=== PATIENT | male | born 1940 | race Hispanic/Latino ===

== ENCOUNTER 2019-03-09 07:17 | Observation (INO) | payer MEDICARE ==
[2019-01-17 12:35] LABS: BASOPHILS % 0.2 % (0.0-1.0); EOSINOPHILS # (AUTO) 0.1 (0.0-0.4); EOSINOPHILS % 1.9 % (0.0-6.0); HEMATOCRIT 41.2 % (34.2-44.1); HEMOGLOBIN 14.2 g/dL (12.0-16.0); LYMPHOCYTES # (AUTO) 1.3 (1.0-3.2); LYMPHOCYTES % 23.7 % (18.0-39.1); MEAN CORPUSCULAR HEMOGLOBIN 32.3 pg (28-32); MEAN CORPUSCULAR HGB CONC 34.5 g/dL (31-35); MEAN CORPUSCULAR VOLUME 93.6 fL (81-99); MONOCYTES # (AUTO) 0.8 (0.2-0.8); MONOCYTES % 14.1 % (4.4-11.3); NEUTROPHILS # (AUTO) 3.2 (2.1-6.9); NEUTROPHILS % 59.7 % (38.7-80.0); PLATELET COUNT 169 x10e3/uL (140-360); RED CELL DISTRIBUTION WIDTH 12.7 % (11.7-14.4)
[2019-01-17 13:09] LABS: ANION GAP 9.9 mmol/L (8-16); BLOOD UREA NITROGEN 20 mg/dL (7-26); BUN/CREATININE RATIO 25 (6-25); CALCIUM 9.4 mg/dL (8.4-10.2); CARBON DIOXIDE 26 mmol/L (22-29); CHLORIDE 106 mmol/L (98-107); CREATININE, SERUM 0.81 mg/dL (0.72-1.25); EST GLOMERULAR FILTRATION RATE > 60 ML/MIN (60-); GLUCOSE 174 mg/dL (74-118); POTASSIUM 3.9 mmol/L (3.5-5.1); SODIUM 138 mmol/L (136-145)
--- NOTE | 2019-01-17 13:21 | Diagnostic Imaging Report ---
EXAMINATION: PA and lateral views of the chest. COMPARISON: None CLINICAL HISTORY: Preoperative study for orthopedic procedure DISCUSSION: Lines/tubes: None. Lungs: The lungs are well inflated and clear. There is no evidence of pneumonia or pulmonary edema. Pleura: There is no pleural effusion or pneumothorax. Heart and mediastinum: The cardiomediastinal silhouette is normal. Coronary artery stents. Bones and soft tissues: No acute bony abnormalities. Degenerative changes in the thoracic spine IMPRESSION: No acute cardiopulmonary abnormalities. Signed by: Dr. Trenton Ricks M.D. on 01/17/2019 1:18 PM
[~2019-03-09] VITALS: Ht 170.2 cm; Wt 63.0 kg
[~2019-03-09 07:17] MED LIST: ASPIR 8181 MG PO; ATORVASTATIN CA20 MG PO; METFORMIN HCL500 MG PO; VASOTEC10 MG PO
--- OUTSIDE RECORDS SUMMARY | 2019-03-09 07:30 | XMS REPORT ---
Author Author [facility] [place] Address Unknown Phone Unavailable Care Team Providers Care Leasing Agent Name Role Phone JUAN VALENZUELA Unavailable Unavailable Problems This patient has no known problems. Allergies, Adverse Reactions, Alerts This patient has no known allergies or adverse reactions. Medications This patient has no known medications. Results Test Description Test Time Test Comments Text Results Atomic Results Result Comments CHEST 2 VIEWS 2019-01-17 13:16:00 [place] [id number] Patient Name: JC SCHULZ MR #: [id number] : 1940 Age/Sex: 78/M Req #: [id number] Adm Physician: Ordered by: JUAN VALENZUELA MD Report #: [id number] Location: OR Room/Bed: Procedure: [id number] DX/CHEST 2 VIEWS Exam Date: Exam Time: REPORT STATUS: Signed EXAMINATION: PA and lateral views of the chest. COMPARISON: None CLINICAL HISTORY: Preoperative study for orthopedic procedure DISCUSSION: Lines/tubes: None. Lungs: The lungs are well inflated and clear. There is no evidence of pneumonia or pulmonary edema. Pleura: There is no pleural effusion or pneumothorax. Heart and mediastinum: The cardiomediastinal silhouette is normal. Coronary artery stents. Bones and soft tissues: No acute bony abnormalities. Degenerative changes in the thoracic spine IMPRESSION: No acute cardiopulmonary abnormalities. Signed by: Dr. Stephanie Gilbert M.D. on 01/17/2019 1:18 PM Dictated By: STEPHANIE GILBERT MD [id number] Transcribed By: PRESTON on 01/17/19 1318 COPY TO: JUAN VALENZUELA MD
[2019-03-09] MEDS ORDERED: CEFAZOLIN SOD 1 GM/NS 50ML 100 ML IV ONE (08:39)
[2019-03-09] MEDS ORDERED: EPINEPHRINE HCL 1:1000 1ML 1 MG/ML AMP ONE ×3 (09:03→12:40)
[2019-03-09] MEDS ORDERED: HEPARIN SOD/SOD CHLORIDE 1,000 ML ONE (10:43)
[2019-03-09] MEDS ORDERED: IBUPROFEN 800MG/ 250ML 250 ML IV ONE (12:48)
[2019-03-09] MEDS ORDERED: ACETAMINOPHEN 1000 MG/100 ML 100 ML IV ONE (12:48)
[2019-03-09] MEDS ORDERED: INSULIN REGULAR, HUMAN 100 UNIT/1 ML 3ML VIAL ONE (13:37)
[2019-03-09] MEDS ORDERED: FENTANYL CITRATE/PF 100MCG/2 ML INJ ONE ×2 (13:48→20:02)
[2019-03-09] MEDS ORDERED: ACETAMINOPHEN/CODEINE 300MG - 30MG TAB ONE (15:43)
[2019-03-09] MEDS ORDERED: MORPHINE SULFATE INJ 4 MG/ML INJ 1ML ONE (16:31)
--- NOTE | 2019-03-09 16:50 | NUR ---
RECEIVED TO RM AAOX3, PT IN STABLE CONDITION, ASSISTED TO BED, ORIENTED TO RM, UPDATED ON POC VOICED UNDERSTANDING, DSG TO R SHOULDER IMMOBILIZER IN PLACE,IVF INFUSING TO L WRIST 20G NO SS OF INFILTRATION NOTED, URINAL AT BEDSIDE, DENIES PAIN AT THIS TIME, CALL LIGHT IN REACH WILL CONTINUE OT MONITOR
[2019-03-09 17:23] VITALS: BP 144/85
[2019-03-09] MEDS ORDERED: HYDRALAZINE HCL 20 MG/ML VIAL IV PRN (17:45)
[2019-03-09] MEDS ORDERED: DEXTROSE 50% SYRINGE 50 ML IV PRN (17:45)
[2019-03-09] MEDS ORDERED: ONDANSETRON HCL INJ 2MG/ML 2ML 2 MG/ML VIAL IV PRN (17:45)
--- NOTE | 2019-03-09 19:12 | NUR ---
1900: Received patient from day nurse, patient is alert and oriented, patient with right shoulder surgery, safety and fall precaution maintained as per hospital protocol: bed in lowest position and locked, needed items beside patient, yellow socks on patient, patient is currently stable will continue to monitor.
--- NOTE | 2019-03-09 19:44 | NUR ---
ALL unsigned medications were confirmed administered or cancelled by another nurse and records in appropriate place before signing them of as non administered to clear emr
[2019-03-09] MEDS ORDERED: DEXAMETHASONE SOD PHOS INJ 4 MG/ML VIAL ONE (19:47)
[2019-03-09] MEDS ORDERED: LIDOCAINE HCL 2% LOCAL INJ 5 ML SDV VIAL INJ ONE (19:47)
[2019-03-09] MEDS ORDERED: ONDANSETRON HCL INJ 2MG/ML 2ML 2 MG/ML VIAL ONE (19:47)
[2019-03-09] MEDS ORDERED: ROCURONIUM BROMIDE 10 MG/ML 5ML VIAL ONE (19:47)
[2019-03-09] MEDS ORDERED: PHENYLEPHRINE HCL 1% 10 MG/ML VIAL ONE (19:47)
[2019-03-09] MEDS ORDERED: PROPOFOL IV EMULSION 10 MG/ML 20 ML VIAL ONE (19:47)
[2019-03-09] MEDS ORDERED: SEVOFLURANE INHAL SOLN 250 ML PEN BTL ONE (19:47)
[2019-03-09] MEDS ORDERED: ACETAMINOPHEN 1000 MG/100 ML IV ONE (19:47)
[2019-03-09] MEDS ORDERED: EPHEDRINE SULFATE INJ 50 MG/10 ML SYR ONE (19:47)
[2019-03-09] MEDS ORDERED: LIDOCAINE 2% /EPINEPHRINE 20 ML SDV INJ ONE (19:49)
[2019-03-09] MEDS ORDERED: ROPIVACAINE 0.5% 5 MG/ML 30 ML SDV ONE (19:49)
[2019-03-09] MEDS: ACETAMINOPHEN/CODEINE 300MG - 30MG TAB PO PRN (19:50)
[2019-03-09 20:00] VITALS: BP 162/84
[2019-03-09] MEDS ORDERED: MIDAZOLAM HCL 2 MG/2 ML VIAL ONE (20:02)
[2019-03-09 21:00] VITALS: BP 162/84
[2019-03-09] MEDS ORDERED: ATORVASTATIN 20 MG TAB PO SCH (21:00)
[2019-03-09] MEDS: INSULIN REGULAR, HUMAN 100 UNIT/1 ML 3ML VIAL SQ SCH (21:21)
[2019-03-10] VITALS: BP 125/64
[2019-03-10] MEDS: ACETAMINOPHEN/CODEINE 300MG - 30MG TAB PO PRN ×4 (00:30→13:40)
[2019-03-10 04:00] VITALS: BP 133/65
[2019-03-10 05:53] LABS: BASOPHILS % 0.1 % (0.0-1.0); EOSINOPHILS % 0.1 % (0.0-6.0); HEMATOCRIT 37.9 % (38.2-49.6); HEMOGLOBIN 12.9 g/dL (14.0-18.0); LYMPHOCYTES % 11.4 % (18.0-39.1); MEAN CORPUSCULAR HEMOGLOBIN 32.2 pg (28-32); MEAN CORPUSCULAR VOLUME 94.5 fL (81-99); MONOCYTES # (AUTO) 1.1 (0.2-0.8); MONOCYTES % 11.8 % (4.4-11.3); NEUTROPHILS # (AUTO) 6.9 (2.1-6.9); NEUTROPHILS % 76.4 % (38.7-80.0); PLATELET COUNT 170 x10e3/uL (140-360); RED BLOOD COUNT 4.01 x10e6/uL (4.3-5.7); RED CELL DISTRIBUTION WIDTH 13.1 % (11.7-14.4)
[2019-03-10 06:09] LABS: ALANINE AMINOTRANSFERASE 15 IU/L (0-55); ALBUMIN 3.4 g/dL (3.5-5.0); ALBUMIN/GLOBULIN RATIO 1.5 (0.8-2.0); ALKALINE PHOSPHATASE 71 IU/L (40-150); ANION GAP 12.2 mmol/L (8-16); BLOOD UREA NITROGEN 15 mg/dL (7-26); BUN/CREATININE RATIO 19 (6-25); CALCIUM 8.5 mg/dL (8.4-10.2); CARBON DIOXIDE 24 mmol/L (22-29); CHLORIDE 102 mmol/L (98-107); CREATININE, SERUM 0.78 mg/dL (0.72-1.25); EST GLOMERULAR FILTRATION RATE > 60 ML/MIN (60-); GLUCOSE 115 mg/dL (74-118); POTASSIUM 4.2 mmol/L (3.5-5.1); SODIUM 134 mmol/L (136-145)
--- NOTE | 2019-03-10 06:58 | NUR ---
PATIENT ENDORSED TO NEXT SIFT FOR CONTINUITY OF CARE.
[2019-03-10] MEDS: INSULIN REGULAR, HUMAN 100 UNIT/1 ML 3ML VIAL SQ SCH ×2 (07:30→11:30)
[2019-03-10] MEDS ORDERED: METFORMIN HCL 500 MG TAB PO SCH (08:00)
[2019-03-10 08:31] VITALS: BP 132/61
[2019-03-10] MEDS ORDERED: ENALAPRIL MALEATE 10 MG TAB PO SCH (09:00)
[2019-03-10 09:10] VITALS: BP 132/61
[2019-03-10] MEDS ORDERED: TYLENOL WITH C1 EACH PO (15:31)
--- NOTE | 2019-03-10 15:45 | NUR ---
NOTIFIED [facility] FOR TRANSPORT HOME, AWAITING ARRIVAL
--- NOTE | 2019-03-10 18:40 | History and Physical ---
CHIEF COMPLAINT: Status post right rotator cuff repair, admitted for hypertension urgency. HISTORY OF PRESENT ILLNESS: This is a 78-year-old male with multiple comorbidities. Of note, has known history of hypertension, type 2 diabetes, and hyperlipidemia, who came in for an elective right shoulder arthroscopy and rotator cuff repair, that was performed by Dr. Coates, Orthopedics. Postoperatively, the patient developed elevated blood pressure, requiring admission for further management and care overnight under observation. After further discussion with the patient, he does report that his blood pressure is occasionally elevated, but currently his blood pressure is stable. He does have a history of type 2 diabetes in the past as well. He denies any pain, cough, congestion, or any shortness of breath. No reports of any chest pain or any palpitations. The patient was seen and evaluated at bedside on the medical floor. He is currently doing well and his pain is well tolerated and his blood pressure stable. REVIEW OF SYSTEMS: 1. Pertinent positives: Status post right shoulder rotator cuff repair. 2. Pertinent negatives: Denies any chest pain, palpitation, nausea, vomiting, diarrhea, dysuria, hematuria, frequency, urgency, lightheadedness, dizziness, abdominal pain, headaches, shortness of breath, cough, congestion, fever, or any other complaints. The rest of 14-point review of systems have been reviewed with the patient and are negative. ALLERGIES: NO KNOWN DRUG ALLERGIES. HOME MEDICATIONS: He takes: 1. Atorvastatin 20 mg daily. 2. Enalapril 10 mg daily. 3. Metformin 500 mg p.o. b.i.d. 4. Aspirin 81 mg daily. PAST MEDICAL HISTORY: Hypertension, type 2 diabetes, hyperlipidemia, right shoulder pain. PAST SURGICAL HISTORY: Status post right shoulder rotator cuff repair. FAMILY HISTORY: Hypertension and diabetes. SOCIAL HISTORY: No drugs. No alcohol. Does not smoke. Good social support. PHYSICAL EXAMINATION: VITAL SIGNS: His temperature is 97.8, pulse 73, respiratory rate 20, blood pressure 132/61, and pulse ox 100% on room air. GENERAL: Not in acute distress. Alert and oriented x3. Cooperative on examination. HEENT: Head is normocephalic, atraumatic. Eyes; pupils are equal, round, and reactive to light bilaterally. Extraocular movements are intact bilaterally. Throat; no evidence of erythema or exudates in the posterior pharynx. Has poor dentition. NECK: Supple. Good range of motion throughout. PULMONARY: Clear to auscultation bilaterally. No wheezing, rales, or rhonchi. No crackles appreciated. CARDIOVASCULAR: Positive S1, S2. No murmurs, rubs, or gallops. ABDOMEN: Soft, nondistended, and nontender to palpation. Bowel sounds present. MUSCULOSKELETAL: Strength is 5/5 throughout. No evidence of any muscle deficits on examination. No weakness appreciated. NEUROLOGICAL: Cranial nerves II through XII grossly intact. No evidence of any neurological deficits on exam. SKIN: Intact. Warm to touch. Good cap refill. PSYCHIATRIC: Normal affect and mood. EXTREMITIES: No edema. Good range of motion throughout. LABORATORY FINDINGS: Show white count 9, hemoglobin 12.9, hematocrit is 38, and platelets of 170. Chemistry; sodium 134, potassium 4.2, chloride 102, bicarb 24, anion gap 12, BUN 15, creatinine is 0.78, glucose is 115, and calcium is 8.5. Total bilirubin was 0.6. LFTs were normal. Albumin was 3.4. IMAGING STUDIES: Chest x-ray, no acute cardiopulmonary abnormalities. IMPRESSION: 1. Status post right shoulder rotator cuff repair arthroscopically. 2. Hypertension urgency, but now much improved blood pressure. 3. Type 2 diabetes. 4. Hyperlipidemia. 5. Chronic pain. PLAN: At this time, the patient was admitted postop from the PACU due to elevated blood pressure readings. While here, his blood pressure is maintained stable. We resumed all his home medications with no changes. At this time, we will continue with the oral enalapril, resume antihypertensive medications. Continue with metformin for now. Monitor his glucose levels with an A1c. Work with Physical therapy and Occupational therapy. Orthopedics is following. Once I get final clearance from Orthopedics, we will discharge home. I have encouraged ambulation. Continue with regular diet. MD MASOUD Dyer/ALAINA /[id number]
--- NOTE | 2019-03-11 11:14 | Discharge Summary ---
FINAL DISCHARGE DIAGNOSES: 1. Status post right shoulder arthroscopy with rotator cuff repair. 2. Type 2 diabetes. 3. Hypertension. 4. Hyperlipidemia. CONSULTANTS: Orthopedics. PHYSICAL EXAMINATION: VITAL SIGNS: Temperature is 97.8, pulse 73, respiratory rate is 20, blood pressure was 132/61, and 100% on room air. LAB FINDINGS: White count is 9, hemoglobin 12.9, hematocrit of 38, and platelets of 170. Chemistry; sodium 134, potassium 4.3, chloride 102, bicarb 24, anion gap of 12, BUN 15, creatinine 0.78, glucose 115, total bilirubin 0.6, AST 14, ALT 15, and albumin 3.4. Microbiology, none. IMAGING STUDIES: Chest x-ray, no acute cardiopulmonary abnormalities. HOSPITAL COURSE: A 78-year-old male, who came in for an elective right shoulder arthroscopy for rotator cuff repair in which, he was performed on 03/09/2019, did well, but postoperatively he developed elevated blood pressure readings. While in PACU, the patient's blood pressure was in the 170s-180s systolically and was admitted overnight for close observation and monitoring. While here, the patient was restarted on all his home medications with much improvement in blood pressure readings, of note on discharge his last systolic blood pressure was recorded at 132/61. The patient is doing well with no complaints. His shoulder is well managed and controlled. He does have a sling at this time. He has been cleared by Orthopedics for discharge home. I advised the patient to continue with the same home medications with no changes at this time, and also he will continue with pain control. On the day of discharge, vital signs stable, labs remained stable. The patient was seen, evaluated, and examined thoroughly on the day of discharge. No other complaints. The patient verbalized understanding. He is to continue to follow up accordingly as an outpatient with primary care physician in 1 week and his orthopedics in 2 weeks' time. MEDICATIONS: See med reconciliation form. DISPOSITION: Home. CONDITION: Stable. DIET: Heart healthy. In the event of any worsening symptoms, the patient was advised to come back to the ED for further evaluation. Discharge summary took greater than 35 minutes. MD MASOUD Dyer/ALAINA /[id number]
--- NOTE | 2019-03-14 19:39 | Operative Report ---
DATE OF PROCEDURE: 03/09/2019 SURGEON: Dariusz Coates MD PREOPERATIVE DIAGNOSES: Right shoulder rotator cuff tear, right shoulder acromioclavicular joint arthritis. POSTOPERATIVE DIAGNOSES: Right shoulder synovitis, right shoulder biceps tendon rupture, large right shoulder rotator cuff tear, right shoulder acromioclavicular joint arthrosis. OPERATION/PROCEDURE PERFORMED: The patient underwent right shoulder examination under anesthesia, right shoulder arthroscopy, arthroscopic debridement of right shoulder synovitis, arthroscopic repair of a large rotator cuff tear, arthroscopic subacromial decompression and acromioplasty, and arthroscopic distal clavicle resection. ORACLE DATABASE ADMINISTRATOR: There was no assist. ANESTHESIA: General endotracheal intubation anesthesia and was also regional block. IV FLUIDS: Per the anesthesia record. BRIEF DISCUSSION OF THE PATIENT'S OPERATIVE PROCEDURE: Mr. Rivera was taken to the operating room, placed in the supine position on the operating table. Following induction of general anesthesia as well as endotracheal intubation, the patient's right upper extremity was examined under anesthesia. He was found to have a normal-appearing shoulder. There was no gross pathology. The patient had full passive range of motion of the shoulder joint. There was no evidence of instability. The patient's upper extremity was prepped and draped in standard surgical fashion. Standard posterolateral and anterior portals were created without difficulty. The scope was placed in the shoulder joint atraumatically. Examination of the glenohumeral articulation demonstrated only mild evidence of chondromalacia. Long head of the biceps tendon was not contained within the shoulder joint. There were no loose bodies in the shoulder. There was a large full-thickness retracted rotator cuff tear. A shaver was placed in the shoulder joint and synovitis was debrided at this time. The insertion site for the rotator cuff was also debrided at this time. The shoulder was inflated with sterile normal saline. The scope was then transferred to the subacromial space and a lateral portal was created with an inside-out technique. A shaver was placed in the shoulder joint and a bursectomy was performed. Examination of the rotator cuff tissue demonstrated a large retracted rotator cuff tear. Portions of the rotator cuff were retracted to the level of the glenoid. The tear extended to the rotator interval. A shaver was used to further debride the insertion site to a bleeding bony bed. Two anchors were then inserted into the greater tuberosity of the humerus. The anterior portal was then transferred into the subacromial space. The suture arms were then woven through the rotator cuff tissue, advanced in the rotator cuff into its normal insertion site. This resulted in reapproximation of the rotator cuff into its normal insertion and repair of the rotator cuff tear. There was a significantly downward sloping acromion. The coracoacromial ligament was resected. An aggressive acromioplasty was performed at this time. Attention was then turned to the acromioclavicular joint. The distal clavicle was isolated using a combination of a shaver as well as an ablating wand. The shaver was transferred to the anterior portal and a 1 cm section of the distal clavicle was resected. The scope was then transferred to the anterior portal to confirm resection of the distal clavicle. The shoulder was then inflated with sterile normal saline. All the portal sites were closed in a multilayer fashion. Sterile dressings were applied to the shoulder and the patient was also provided a shoulder immobilizer, awakened, and taken to the postanesthesia care unit in stable condition. MD MARGAUX Clinton/ALAINA /[id number]
== END 2019-03-10 16:40 | disposition home or self-care (01) ==
LOC: OR 07:17 → PACU V 16:12 → MED/SURG 16:46
PROVIDERS: ADMIT Internal Medicine; ATTEND Internal Medicine
DX: S46.011A Strain of muscle(s) and tendon(s) of the rotator cuff of right shoulder, initial encounter (principal); M19.011 Primary osteoarthritis, right shoulder; E11.9 Type 2 diabetes mellitus without complications; E78.5 Hyperlipidemia, unspecified; I10 Essential (primary) hypertension; Z79.82 Long term (current) use of aspirin; Z79.84 Long term (current) use of oral hypoglycemic drugs
CPT/HCPCS: 29824; 29826; 29827; 36415 ×3; 71046; 80048; 80053; 82948 ×2; 85025 ×2; 93005; 97110; 97161; G0378 ×2; J0131; J0171; J0690; J1100; J2001 ×2; J2250; J2270; J2370; J2405; J2704; J2795; J1817; J3010